=== PATIENT | female | born 1955 | race Two or more races ===

== ENCOUNTER 2021-11-09 07:45 | Inpatient (IN) | payer OTHER ==
[~2021-11-09] VITALS: Ht 162.6 cm; Wt 88.0 kg
[2021-11-09] MEDS ORDERED: ZOLOFT50 MG PO (10:05)
[2021-11-09] MEDS ORDERED: LEVOTHYROXINE25 MCG PO (10:06)
[2021-11-09] MEDS ORDERED: MICARDIS80 MG PO (10:06)
[2021-11-09] MEDS ORDERED: ZIAC 2.5-6.251 EACH PO (10:06)
[2021-11-09] MEDS ORDERED: LASIX20 MG PO (10:07)
[2021-11-09] MEDS ORDERED: ALDACTONE25 MG PO (10:07)
[2021-11-09] MEDS ORDERED: LIPITOR40 MG PO (10:07)
[2021-11-14] MEDS ORDERED: SERTRALINE HCL25 MG (16:51)
[2021-11-14] MEDS ORDERED: RISPERIDONE0.25 MG (16:52)
[2021-11-16] MEDS ORDERED: ELIQUIS2.5 MG PO (14:24)
[2021-11-16] MEDS ORDERED: PERCOCET 5-3251 EACH PO (14:24)
== END 2021-11-16 19:40 | DRG 470 ==
LOC: O/R 11-14 06:30 → SURH 11-14 07:45 → SURG 11-15 08:29
PROVIDERS: ADMIT Orthopaedic Surgery; ATTEND Orthopaedic Surgery
PROC: 3E0F7SF Introduction of Other Gas into Respiratory Tract, Via Natural or Artificial Opening (ICD-10-PCS; 2021-11-14)
PROC: 0SR Lower Joints, Replacement (ICD-10-PCS; principal; 2021-11-14 10:00)
PROC: 30233N1 Transfusion of Nonautologous Red Blood Cells into Peripheral Vein, Percutaneous Approach (ICD-10-PCS; 2021-11-15)
DX: M16.12 Unilateral primary osteoarthritis, left hip (principal); D62 Acute posthemorrhagic anemia; I10 Essential (primary) hypertension; E11.9 Type 2 diabetes mellitus without complications; E03.9 Hypothyroidism, unspecified; E66.8 Other obesity; Z68.33 Body mass index [BMI] 33.0-33.9, adult

== ENCOUNTER 2021-11-30 11:04 | Emergency (ER) | payer OTHER ==
[~2021-11-30] VITALS: Ht 162.6 cm; Wt 86.2 kg
[~2021-11-30 11:04] MED LIST: ALDACTONE25 MG PO; ELIQUIS2.5 MG PO; LASIX20 MG PO; LEVOTHYROXINE25 MCG PO; LIPITOR40 MG PO; MICARDIS80 MG PO; PERCOCET 5-3251 EACH PO; RISPERIDONE0.25 MG; SERTRALINE HCL25 MG; ZIAC 2.5-6.251 EACH PO; ZOLOFT50 MG PO
== END 2021-11-30 15:26 | disposition home or self-care (01) ==
LOC: ER 11:04
DX: E86.0 Dehydration (principal)

== ENCOUNTER 2023-03-06 11:48 | Emergency (ER) | payer OTHER ==
[~2023-03-06] VITALS: Ht 162.6 cm; Wt 98.9 kg
[2023-03-06] MEDS ORDERED: TRADJENTA5 MG PO (12:07)
[2023-03-06] MEDS ORDERED: MUPIROCIN15 GM TOP (12:43)
== END 2023-03-06 12:51 | disposition home or self-care (01) ==
LOC: ER 11:48
DX: S00.452A Superficial foreign body of left ear, initial encounter (principal); X58.XXXA Exposure to other specified factors, initial encounter; Y93.89 Activity, other specified; Y92.89 Other specified places as the place of occurrence of the external cause; Y99.8 Other external cause status; E11.9 Type 2 diabetes mellitus without complications; Z88.6 Allergy status to analgesic agent; Z88.0 Allergy status to penicillin